=== PATIENT | male | born 1970 | race Caucasian/White ===

== ENCOUNTER 2024-09-22 10:04 | Outpatient (RCR) | payer OTHER, MEDICARE, SELFPAY ==
[2024-09-22] VITALS (7 sets, daily range): BP systolic 124–140; BP diastolic 68–98
[2024-09-22] MEDS: TYLENOL 650 MG PO (10:36)
[2024-09-22] MEDS: SOLU-MEDROL PF 51.6 MG IV (10:36)
[2024-09-22] MEDS: NSS 500 IV (10:37)
[2024-09-22] MEDS: BENADRYL 51 MG IV (11:05)
[2024-09-22] MEDS: OCREVUS 520 MG IV (11:33)
== END 2024-09-23 08:47 | disposition home or self-care (01) ==
LOC: OID 10:04
PROVIDERS: ATTENDING PHYSICIAN Specialist; FAMILY PHYSICIAN Family Medicine
DX: G35 Multiple sclerosis (principal)
CPT/HCPCS: 96367; 96413; 96415; J2350